=== PATIENT | female | born 1935 | race African-American/Black ===

== ENCOUNTER 2019-11-13 14:22 | Emergency (ER) | payer MEDICARE, MEDICAID ==
[~2019-11-13] VITALS: Ht 167.6 cm; Wt 68.2 kg
[2019-11-13 15:08] VITALS: BP 191/56
--- NOTE | 2019-11-13 16:04 | NUR ---
patient to ct.
[2019-11-13] MEDS ORDERED: ACET-812 PO (16:49)
== END 2019-11-13 17:28 | disposition home or self-care (01) ==
LOC: ER 14:23
DX: S09.90XA Unspecified injury of head, initial encounter (principal); S19.9XXA Unspecified injury of neck, initial encounter; Z79.899 Other long term (current) drug therapy; V98.8XXA Other specified transport accidents, initial encounter; Y93.89 Activity, other specified; Y92.488 Other paved roadways as the place of occurrence of the external cause; Y99.8 Other external cause status
CPT/HCPCS: 70450; 72125; 99284

== ENCOUNTER 2019-12-01 16:38 | Emergency (ER) | payer MEDICARE, MEDICAID ==
[~2019-12-01] VITALS: Ht 167.6 cm; Wt 72.0 kg
[~2019-12-01 16:38] MED LIST: ACET-812 PO
[2019-12-01 17:09] VITALS: BP 193/103
[2019-12-01] MEDS ORDERED: gabapentin 400mg capsule PO SCH (17:50)
[2019-12-01] MEDS ORDERED: cyclobenzaprine 10mg tablet PO ONE (17:50)
[2019-12-01] MEDS ORDERED: CYCL-1 PO (18:22)
[2019-12-02] MEDS ORDERED: gabapentin 300mg capsule PO SCH (17:50)
== END 2019-12-01 18:30 | disposition home or self-care (01) ==
LOC: ER 16:39
DX: M79.605 Pain in left leg (principal); M43.6 Torticollis; M25.511 Pain in right shoulder; E11.9 Type 2 diabetes mellitus without complications
CPT/HCPCS: 73030; 99283

== ENCOUNTER 2024-07-07 08:31 | Outpatient (CLI) | payer MEDICARE, MEDICAID ==
[~2024-07-07 08:31] MED LIST changes: -ACET-812 PO; +CYCL-1 PO
== END 2024-07-07 23:59 | disposition home or self-care (01) ==
LOC: RAD 08:31
PROVIDERS: ATTEND Nurse Practitioner Family
DX: I08.8 Other rheumatic multiple valve diseases (principal); M79.652 Pain in left thigh; R06.09 Other forms of dyspnea
CPT/HCPCS: 93971; C8929; 93306